=== PATIENT | male | born 1975 | race Caucasian/White ===

== ENCOUNTER 2021-03-27 17:45 | Inpatient (IN) | payer OTHER ==
[~2021-03-27] VITALS: Ht 177.8 cm; Wt 64.9 kg
[2021-03-27 17:50] VITALS: BP 135/68
--- NOTE | 2021-03-27 17:58 | NUR ---
PT AMB TO BED 11
--- NOTE | 2021-03-27 18:00 | NUR ---
46 Y/O MALE BIB SELF S/P DOCTOR VISIT FOR RUQ PAIN. PT WAS INFORMED HE HAD CHOLELITHIASIS AND POSSIBLY NEEDED SURGERY. PT PRESENTS WITH RUQ SHARP PAIN. DENIES N/V/D/CP AT THIS TIME. + BS SOUNDS HEARD X 4. ABD IS SOFT, TENDER AND ROUND. NO MASSESS, BULGES OR PULSATING NOTED. PMHX: DENIES ALLERGIES: DENIES HOME MEDS: DENIES
[2021-03-27] MEDS ORDERED: KETOROLAC 30 MG/ML VIAL IVP ONE (18:10)
[2021-03-27] MEDS ORDERED: NACL 0.9% 1,000 ML IV SCH (18:10)
--- NOTE | 2021-03-27 18:20 | NUR ---
DR GRACE AT BEDSIDE TO ASSESS
--- NOTE | 2021-03-27 18:40 | NUR ---
BLOOD SPECIMENS DRAWN AND HANDED TO SURGICAL ASSIST AT BEDSIDE
[2021-03-27 18:46] LABS: BASOPHILS # (AUTO) 0.1 K/uL (0.00-0.22); BASOPHILS % (AUTO) 0.3 % (0.0-2.0); EOSINOPHILS % (AUTO) 0.2 % (0.0-4.0); HEMATOCRIT 44.4 % (36-52); HEMOGLOBIN 15.3 g/dL (12.0-18.0); LYMPHOCYTES # (AUTO) 1.1 K/uL (2.0-11.5); LYMPHOCYTES % (AUTO) 6.7 % (20.5-51.1); MEAN CORPUSCULAR HEMOGLOBIN 31 pg (27-31); MEAN CORPUSCULAR HGB CONC 34 g/dL (33-37); MEAN CORPUSCULAR VOLUME 88.9 fL (80-94); MONOCYTES # (AUTO) 1.5 K/uL (0.8-1.0); MONOCYTES % (AUTO) 8.7 % (1.7-9.3); NEUTROPHILS % (AUTO) 84.1 % (42.2-75.2); PLATELET COUNT (AUTO) 225 K/uL (140-450); RED CELL DISTRIBUTION WIDTH 13.5 % (11.6-13.7); WHITE BLOOD COUNT (AUTO) 16.7 K/uL (4.8-10.8)
[2021-03-27 19:09] LABS: ALBUMIN 3.8 g/dL (3.4-5.0); ANION GAP 14.3 (8-16); CARBON DIOXIDE 25.5 mmol/L (21-32); CREATININE 1.1 mg/dL (0.6-1.3); POTASSIUM 3.8 mmol/L (3.5-5.1); TOTAL BILIRUBIN 1.1 mg/dL (0.0-1.0)
[2021-03-27] MEDS ORDERED: PIPERACILLIN/TAZOBACTAM 3.375 GM in DEXTROSE 5% 50 ML IV ONE (19:20)
--- NOTE | 2021-03-27 19:26 | NUR ---
Pt report given to CLAUDIA LEMUS. Transfer of care at this time.
[2021-03-27] MEDS ORDERED: PIPERACILLIN/TAZOBACTAM 3.375 GM VIAL IV ONE (19:45)
[2021-03-27] MEDS ORDERED: DEXT 5% / NACL 0.9% 500 ML IV ONE (19:55)
[2021-03-27] MEDS ORDERED: MORPHINE SULFATE 4 MG/ML SYR IVP ONE (20:15)
[2021-03-27] MEDS ORDERED: ZOLPIDEM 5 MG TAB PO PRN (21:00)
[2021-03-27] MEDS ORDERED: guaiFENesin DM 200/20 MG-10 ML 10 ML UDC PO PRN (21:00)
[2021-03-27] MEDS ORDERED: HYDROcodone/APAP 7.5/325 MG 1 TAB PO PRN (21:00)
[2021-03-27] MEDS ORDERED: POTASSIUM CHLORIDE 10 MEQ TABER PO PRN (21:00)
[2021-03-27] MEDS ORDERED: DOCUSATE SODIUM 100 MG GELCAP PO PRN (21:00)
[2021-03-27] MEDS ORDERED: ONDANSETRON 4 MG/2 ML VIAL IM/IVP PRN (21:00)
[2021-03-27] MEDS ORDERED: ACETAMINOPHEN 325 MG TAB PO PRN (21:00)
--- NOTE | 2021-03-27 21:40 | NUR ---
REPORT GIVEN TO MELISSA LEMUS AT THIS TIME. CLEARED FOR TELE TRANSFER TO [facility]
[2021-03-27 21:54] LABS: PROTHROMBIN TIME 12.8 secs (10.8-13.4)
[2021-03-27 21:56] LABS: CHOL/HDL RATIO 2.1 (1-4.5); FREE T4 (FREE THYROXINE) 1.21 ng/dL (0.76-1.46); PHOSPHORUS 3.2 mg/dL (2.5-4.9); THYROID STIMULATING HORMONE 2.1 uIU/mL (0.34-3.74)
[2021-03-27 22:00] VITALS: BP 121/50
--- NOTE | 2021-03-28 00:08 | NUR ---
PATIENT TAKEN TO CT SCAN.
[2021-03-28 02:18] LABS: APPEARANCE,URINE CLEAR (CLEAR); BILIRUBIN,URINE NEGATIVE (NEGATIVE); BLOOD, URINE NEGATIVE (NEGATIVE); COLOR,URINE YELLOW (YELLOW); LEUKOCYTE ESTERASE ,URINE NEGATIVE (NEGATIVE); NITRITE, URINE NEGATIVE (NEGATIVE); UGLUCOSE NEGATIVE (NEGATIVE)
[2021-03-28 02:28] LABS: BARBITURATE, URINE NEGATIVE ng/ml (NEG <=200); BENZODIAZEPINE, URINE NEGATIVE ng/mL (NEG <=200); CANNABINOID, URINE POSITIVE ng/mL (NEG <=50); COCAINE, URINE NEGATIVE ng/mL (NEG <=300); OPIATE, URINE POSITIVE ng/mL (NEG <=2000); PHENCYCLIDINE SCREEN,URINE NEGATIVE ng/mL (NEG <=25)
[2021-03-28 04:00] VITALS: BP 118/65
[2021-03-28 04:04] LABS: BASOPHILS % (AUTO) 0.3 % (0.0-2.0); EOSINOPHILS # (AUTO) 0.1 K/uL (0-0.4); EOSINOPHILS % (AUTO) 0.7 % (0.0-4.0); HEMATOCRIT 41.7 % (36-52); HEMOGLOBIN 14.1 g/dL (12.0-18.0); LYMPHOCYTES # (AUTO) 1.1 K/uL (2.0-11.5); LYMPHOCYTES % (AUTO) 8.2 % (20.5-51.1); MEAN CORPUSCULAR HEMOGLOBIN 30 pg (27-31); MEAN CORPUSCULAR HGB CONC 34 g/dL (33-37); MEAN CORPUSCULAR VOLUME 89.7 fL (80-94); MONOCYTES # (AUTO) 1.2 K/uL (0.8-1.0); MONOCYTES % (AUTO) 8.9 % (1.7-9.3); NEUTROPHILS % (AUTO) 81.9 % (42.2-75.2); PLATELET COUNT (AUTO) 191 K/uL (140-450); RED BLOOD CELL COUNT(AUTO) 4.65 MIL/uL (4.20-6.10); RED CELL DISTRIBUTION WIDTH 13.6 % (11.6-13.7); WHITE BLOOD COUNT (AUTO) 13.5 K/uL (4.8-10.8)
[2021-03-28] MEDS ORDERED: PIPERACILLIN/TAZOBACTAM 3.375 GM VIAL IV ONE (04:07)
[2021-03-28] MEDS: PIPERACILLIN/TAZOBACTAM 3.375 GM in DEXTROSE 5% 50 ML IV SCH ×3 (04:23→20:41)
[2021-03-28 04:39] LABS: ANION GAP 9.9 (8-16); CARBON DIOXIDE 28.9 mmol/L (21-32); CREATININE 1.1 mg/dL (0.6-1.3); POTASSIUM 3.8 mmol/L (3.5-5.1)
--- NOTE | 2021-03-28 07:20 | NUR ---
PATIENT TAKEN TO OR WITH OR NURSES.
--- NOTE | 2021-03-28 07:20 | NUR ---
RECEIVED REPORT FROM DRY MOLDER NURSE. PT TAKEN TO OR.
[2021-03-28] MEDS ORDERED: HYDROmorphone 1 MG/ML AMP IVP PRN ×2 (07:35→09:45)
[2021-03-28] MEDS ORDERED: ONDANSETRON 4 MG/2 ML VIAL IVP PRN (07:35)
[2021-03-28] MEDS ORDERED: BUPIVACAINE-MPF/EPI 0.25% 10 ML VIAL INJ ONE (07:39)
[2021-03-28] MEDS ORDERED: LIDOCAINE 1% 500 MG/50 ML VIAL ONE (07:39)
[2021-03-28] MEDS ORDERED: DESFLURANE 240 ML BTL INH ONE (07:40)
[2021-03-28] MEDS ORDERED: fentaNYL citrate 0.05 MG/ML VIAL ONE (07:43)
[2021-03-28] MEDS ORDERED: HYDROmorphone PFS 2 MG/ML SYR ONE (08:15)
[2021-03-28] MEDS ORDERED: SUCCINYLCHOLINE CHLORIDE 200 MG/10 ML VIAL IVP ONE (08:16)
[2021-03-28] MEDS ORDERED: DEXAMETHASONE 4 MG/ML VIAL ONE (08:16)
[2021-03-28] MEDS ORDERED: SUGAMMADEX SODIUM 200 MG/2 ML VIAL IV ONE (08:16)
[2021-03-28] MEDS ORDERED: PROPOFOL 200 MG/20 ML VIAL IV ONE (08:16)
[2021-03-28] MEDS ORDERED: ONDANSETRON 4 MG/2 ML VIAL ONE (08:16)
[2021-03-28] MEDS ORDERED: KETOROLAC 30 MG/ML VIAL ONE (08:16)
[2021-03-28] MEDS ORDERED: LABETALOL 100 MG/20 ML VIAL ONE (08:35)
--- NOTE | 2021-03-28 08:53 | NUR ---
PATIENT HAS BEEN SCREENED AND CATEGORIZED MODERATE NUTRITION RISK. PATIENT WILL BE SEEN WITHIN 3-5 DAYS OF ADMISSION. HERNA[address]Z [address]
[2021-03-28] MEDS ORDERED: PANTOPRAZOLE 40 MG TABEC PO SCH (09:00)
[2021-03-28] MEDS ORDERED: ROCURONIUM 50 MG/5 ML VIAL IV ONE ×2 (09:40)
[2021-03-28] MEDS ORDERED: MORPHINE SULFATE 2 MG/ML SYR IVP PRN (09:45)
[2021-03-28] MEDS ORDERED: MORPHINE SULFATE 4 MG/ML SYR IV PRN (09:45)
[2021-03-28] MEDS ORDERED: ONDANSETRON 4 MG/2 ML VIAL IV PRN (09:45)
[2021-03-28] MEDS ORDERED: HYDROcodone/APAP 5/325 MG 1 TAB TAB PO PRN (09:45)
--- NOTE | 2021-03-28 10:55 | NUR ---
PT BACK FROM OR, S/P LAPAROSCOPIC CHOLECYSTECTOMY WITH DRY DRESSING ON RUQ ABDOMEN WITH AIDE DRAIN, BLOODY DRAINAGE. PT AWAKE, BREATHING SYMMETRICAL. DENIES PAIN AT THIS TIME. [id number] PR65 RR18 TEMP97.6 O2 SAT 95
--- NOTE | 2021-03-28 13:50 | NUR ---
PT AWAKE, ALERT, ORIENTED X4. ABLE TO AMBULATE. BREATHING SYMMETRICAL. DENIES PAIN AT THIS TIME. DRY DRESSING ON RUQ ABDOMEN, AIDE DRAIN INTACT, DRAINING DARK BLOOD OUTPUT 20CC. CALL LIGHT WITHIN REACH. ALL SAFETY MEASURES IN PLACE. WILL CONTINUE TO MONITOR.
[2021-03-28 16:00] VITALS: BP 121/73
--- NOTE | 2021-03-28 16:40 | NUR ---
PT ASLEEP IN BED. BREATHING SYMMETRICAL. FLACC 0. CALL LIGHT WITHIN REACH. ALL SAFETY MEASURES IN PLACE. WILL CONTINUE TO MONITOR.
--- NOTE | 2021-03-28 19:47 | NUR ---
ENDORSED TO CHAR FILTER TANK TENDER HEAD NURSE, NO CHANGE IN PT'S CONDITION
--- NOTE | 2021-03-28 19:50 | NUR ---
RECEIVED PT REPORT DISCUISSED POC WITH AM NURSE FOR CONTINUITY OF CARE . PT A&OX4 RESTING IN BED. RUQ INCISION WITH DILCIA VILLALBA DRAIN IN PLACE DRAINING SANGUINOUS FLUID. DRESSING INTACT AREA MARKED WHERE DRAINAGE SEEPED THROUGH. LAC 18G SL PATENT FLUSHED WITH NS. ALL SAFETY MEASURES IN PLACE WILL CONTINUE TO MONITOR.
--- NOTE | 2021-03-28 21:00 | NUR ---
PT AMBULATING AD MARK. C/O SORENESS AT INCISION SITE 06/19. NORCO 1 TAB GIVEN FOR INCISIONAL DISCOMFORT. WILL CONTINUE TO OBSERVE.
--- NOTE | 2021-03-28 22:00 | NUR ---
PT LYING IN BED WATCHING TV. REASSESSED PAIN NOW 02/19.
[2021-03-29 00:53] VITALS: BP 123/66
--- NOTE | 2021-03-29 04:30 | NUR ---
PT C/O RUQ INCISIONAL PAIN 07/20. RECEIVED DILAUDID 0.5MG/0.5ML IVP. LAC 18 G SL PATENT. ALL SAFETY MEASURES IN PLACE. WILL CONTINUE TO MONITOR.
[2021-03-29] MEDS: PIPERACILLIN/TAZOBACTAM 3.375 GM in DEXTROSE 5% 50 ML IV SCH ×2 (04:37→13:05)
--- NOTE | 2021-03-29 05:55 | NUR ---
REASSESSED PT. PAIN NOW ZERO. AM BLOOD DRAW DONE BY LAB. CALL LIGHT WITHIN REACH . CONTINUE TO MONITOR.
--- NOTE | 2021-03-29 07:30 | NUR ---
ENDORSED REPORT TO DAY RN. REVIEWED POC FOR CONTINUITY OF CARE.
--- NOTE | 2021-03-29 07:40 | NUR ---
RECEIVED REPORT FROM SUPERVISOR CONCRETE STONE FINISHING NURSE FOR CONTINUITY OF CARE. PT IN BED, AWAKE. BREATHING SYMMETRICAL. DENIES PAIN AT THIS TIME. AIDE DRAIN INTACT AND PATENT, WITH DARK BLOODY OUTPUT. CALL LIGHT WITHIN REACH. ALL SAFETY MEASURES IN PLACE.
[2021-03-29 08:00] VITALS: BP 130/74
[2021-03-29 08:05] LABS: ALBUMIN 2.9 g/dL (3.4-5.0); ANION GAP 13.3 (8-16); CARBON DIOXIDE 26.3 mmol/L (21-32); CREATININE 0.9 mg/dL (0.6-1.3); POTASSIUM 3.6 mmol/L (3.5-5.1); TOTAL BILIRUBIN 0.7 mg/dL (0.0-1.0)
[2021-03-29 08:07] LABS: T4 (THYROXINE) 6.2 ug/dL (4.5-12.0)
[2021-03-29] MEDS ORDERED: ACET-9525 PO (11:09)
[2021-03-29] MEDS ORDERED: DOCU-300 PO (11:12)
[2021-03-29] MEDS ORDERED: OMEP20EC11 PO (11:12)
[2021-03-29 12:13] VITALS: BP 130/74
--- NOTE | 2021-03-29 13:00 | NUR ---
PT'S IV WAS PULLED OUT. TRIED TO INSERT BUT PT IS HARD STICK. WILL CONTINUE TO TRY. Addendum: 03/29/21 at 1431 by Dionne Mooney RN WRONG ENTRY
[2021-03-29 13:19] LABS: ANION GAP 12.2 (8-16); CARBON DIOXIDE 27.8 mmol/L (21-32)
--- NOTE | 2021-03-29 14:30 | NUR ---
PT FOR DISCHARGE. AIDE DRAIN REMOVED ORDERED, NO BLEEDING NOTED. IV LINE ALSO REMOVED. PT DISCHARGED TO HOME, PICKED UP BY [facility]IA [facility]IVATE TRANSPORTATION. IN STABLE CONDITION.
[2021-03-29 22:28] LABS: BASOPHILS # (AUTO) 0.1 K/uL (0.00-0.22); BASOPHILS % (AUTO) 0.9 % (0.0-2.0); EOSINOPHILS # (AUTO) 0.1 K/uL (0-0.4); EOSINOPHILS % (AUTO) 0.6 % (0.0-4.0); HEMOGLOBIN 13.6 g/dL (12.0-18.0); LYMPHOCYTES # (AUTO) 1.3 K/uL (2.0-11.5); LYMPHOCYTES % (AUTO) 13.2 % (20.5-51.1); MEAN CORPUSCULAR HEMOGLOBIN 31 pg (27-31); MEAN CORPUSCULAR HGB CONC 34 g/dL (33-37); MEAN CORPUSCULAR VOLUME 91.2 fL (80-94); MONOCYTES # (AUTO) 0.6 K/uL (0.8-1.0); NEUTROPHILS # (AUTO) 8.1 K/uL (1.8-7.7); NEUTROPHILS % (AUTO) 79.3 % (42.2-75.2); PLATELET COUNT (AUTO) 197 K/uL (140-450); RED BLOOD CELL COUNT(AUTO) 4.39 MIL/uL (4.20-6.10); RED CELL DISTRIBUTION WIDTH 13.8 % (11.6-13.7); WHITE BLOOD COUNT (AUTO) 10.2 K/uL (4.8-10.8)
== END 2021-03-29 17:08 | disposition home or self-care (01) | DRG 853 ==
LOC: MED 17:45 → MTU 19:54
PROVIDERS: ADMIT Family Medicine; ATTEND Family Medicine
PROC: 0DNU4ZZ Release Omentum, Percutaneous Endoscopic Approach (ICD-10-PCS; 2021-03-28)
PROC: 0W9G4ZZ Drainage of Peritoneal Cavity, Percutaneous Endoscopic Approach (ICD-10-PCS; 2021-03-28)
PROC: 0FT44ZZ Resection of Gallbladder, Percutaneous Endoscopic Approach (ICD-10-PCS; principal; 2021-03-28 07:30)
DX: A41.9 Sepsis, unspecified organism (principal); K65.3 Choleperitonitis; K80.00 Calculus of gallbladder with acute cholecystitis without obstruction; K82.A1 Gangrene of gallbladder in cholecystitis; K66.0 Peritoneal adhesions (postprocedural) (postinfection); Z20.822 Contact with and (suspected) exposure to COVID-19; E80.6 Other disorders of bilirubin metabolism; E78.5 Hyperlipidemia, unspecified; E86.0 Dehydration; F12.90 Cannabis use, unspecified, uncomplicated; Z87.891 Personal history of nicotine dependence
CPT/HCPCS: 36415; 71045; 74150; 76705; 80048; 80053; 80305; 81003; 82150; 82374; 83036; 83690; 83735; 83880; 84100; 84436; 84439; 84443; 84479; 84484; 85025; 85610; 85730; 86886; 86900; 86901; 87040; 87081; 88304; 96361; 96365; 96375; 99285; J0330; J1100; J1170; J1885; J2001; J2270; J2405; J2543; J2704; J3010; J3490; J7030; J7060; J7120; Q0092